=== PATIENT | male | born 1995 | race Caucasian/White ===

== ENCOUNTER 2019-03-18 00:30 | Emergency (ER) | payer BC ==
[~2019-03-18] VITALS: Ht 167.6 cm; Wt 68.2 kg
[~2019-03-18 00:30] MED LIST: MEDROL 4MG DOSPA4 MG PO; PROVENTIL0.09 MG/A1 IH
[2019-03-18 00:37] VITALS: TEMP 98.2
[2019-03-18] MEDS ORDERED: PREDNISONE20 MG PO (02:27)
[2019-03-18 02:39] VITALS: BP 137/65; PULSE 79
== END 2019-03-18 02:52 | disposition home or self-care (01) ==
LOC: COL.ER 00:30
DX: T78.1XXA Other adverse food reactions, not elsewhere classified, initial encounter (principal); M79.89 Other specified soft tissue disorders; F17.220 Nicotine dependence, chewing tobacco, uncomplicated; J45.909 Unspecified asthma, uncomplicated
CPT/HCPCS: J1200; J2930